=== PATIENT | female | born 1970 | race Caucasian/White ===

== ENCOUNTER 2016-09-09 00:54 | Inpatient (IN) | payer BC, OTHER ==
[2016-07-24 13:54] VITALS: BP 128/83
[2016-07-24 15:54] LABS: BASOPHIL % 0.2 % (0.0-0.2); EOSINOPHIL % 0.1 % (0.0-5.0); HEMATOCRIT 40.4 % (36.0-46.0); HEMOGLOBIN 13.2 g/dL (12.0-15.0); LYMPHOCYTES % 10.1 % (24.0-44.0); MEAN CELL HGB 29.3 pg (26-34); MEAN CELL HGB CONCENTRATION 32.7 g/dL (33-37); MEAN CORP VOLUME 89.6 fL (78-100); MEAN PLATELET VOLUME 10.4 fL (7.8-11.0); MONOCYTES # 0.2 10^3/uL (0.3-0.8); MONOCYTES % 1.9 % (5.0-12.0); NEUTROPHILS % 87.5 % (41.0-85.0); RED CELL DISTRIBUTION WIDTH 12.7 % (11.5-14.5); WHITE BLOOD CELL 10.3 10^3/uL (4.5-11.0)
[2016-07-24 16:13] LABS: ALANINE AMINOTRANSFERASE 17 U/L (12-78); ALKALINE PHOSPHATASE 102 U/L (50-136); ASPARTATE AMINO TRANSFERASE 23 U/L (0-35); CALCIUM 8.8 mg/dL (8.4-10.5); CARBON DIOXIDE 27.3 mmol/L (20.0-32); GLUCOSE 105 mg/dL (70-110)
[2016-09-08 10:04] LABS: BASOPHIL % 0.2 % (0.0-0.2); EOSINOPHIL # 0.2 10^3/uL (0.0-0.2); EOSINOPHIL % 1.8 % (0.0-5.0); HEMOGLOBIN 12.9 g/dL (12.0-15.0); LYMPHOCYTES # 2.8 10^3/uL (1.0-4.8); LYMPHOCYTES % 26.8 % (24.0-44.0); MEAN CELL HGB 29.9 pg (26-34); MEAN CELL HGB CONCENTRATION 33.1 g/dL (33-37); MEAN CORP VOLUME 90.5 fL (78-100); MEAN PLATELET VOLUME 9.6 fL (7.8-11.0); MONOCYTES # 0.9 10^3/uL (0.3-0.8); MONOCYTES % 8.7 % (5.0-12.0); NEUTROPHIL # 6.4 10^3/uL (1.8-7.7); NEUTROPHILS % 62.3 % (41.0-85.0); RED CELL DISTRIBUTION WIDTH 12.6 % (11.5-14.5); WHITE BLOOD CELL 10.3 10^3/uL (4.5-11.0)
[2016-09-08 10:54] LABS: CALCIUM 8.7 mg/dL (8.4-10.5); CARBON DIOXIDE 28.1 mmol/L (20.0-32)
[2016-09-09] VITALS (14 sets, daily range): BP systolic 106–143; BP diastolic 63–97
[~2016-09-09] VITALS: Ht 162.6 cm; Wt 75.3 kg
[~2016-09-09 00:54] MED LIST: BIOT25004 PO; BUTA1CAP61 PO; DICY10CA52 PO; FLUC150T PO; MOVIPREP POWDER PACKET PO STA; MULT-615 PO; PANT40GR PO; SIMV20TA3 PO; SIMV40TA3 PO
[2016-09-09] MEDS ORDERED: LACTATED RINGERS 1,000 ML ONE ×2 (04:53→11:52)
[2016-09-09] MEDS ORDERED: LOVENOX SQ ONE ×2 (04:53→06:00)
[2016-09-09] MEDS ORDERED: MEFOXIN ONE (04:54)
[2016-09-09] MEDS ORDERED: NS 100ML 100 ML IV ONE (04:54)
[2016-09-09] MEDS ORDERED: MEFOXIN IV ONE (06:00)
[2016-09-09] MEDS ORDERED: ZEMURON IV ONE (06:51)
[2016-09-09] MEDS ORDERED: VERSED ONE (06:52)
[2016-09-09] MEDS ORDERED: DIPRIVAN IV ONE (06:52)
[2016-09-09] MEDS ORDERED: ZOFRAN ONE (06:52)
[2016-09-09] MEDS ORDERED: SUBLIMAZE ONE (06:53)
[2016-09-09] MEDS ORDERED: TRANSDERM-SCOP TD ONE ×2 (07:25→07:26)
[2016-09-09] MEDS ORDERED: XYLOCAINE ONE (07:37)
[2016-09-09] MEDS: LACTATED RINGERS 1,000 ML IV SCH ×2 (07:44→12:21)
[2016-09-09] MEDS ORDERED: LIDOCAINE 2% VIAL ONE (07:52)
[2016-09-09] MEDS ORDERED: XYLOCAINE IH ONE (08:00)
[2016-09-09] MEDS ORDERED: LIDOCAINE HCL 4% IH ONE (08:00)
[2016-09-09] MEDS ORDERED: NS 1000ML 1,000 ML ONE (08:47)
[2016-09-09] MEDS ORDERED: SODIUM CHLORIDE IR ONE (08:47)
[2016-09-09] MEDS ORDERED: SENSORCAINE-MPF 0.5% VIAL ONE (08:48)
[2016-09-09] MEDS ORDERED: WATER ONE (09:06)
[2016-09-09] MEDS ORDERED: METHYLENE BLUE IJ ONE (10:15)
[2016-09-09] MEDS ORDERED: DILAUDID ONE ×2 (10:35→12:44)
[2016-09-09] MEDS ORDERED: SODIUM CHLORIDE IRR BAG 1,000 ML ONE (10:36)
[2016-09-09] MEDS ORDERED: TRIPLE ANTIBIOTIC OINTMENT TP ONE (11:28)
[2016-09-09] MEDS ORDERED: TYLENOL PO PRN ×2 (12:30→17:00)
[2016-09-09] MEDS ORDERED: ZOFRAN IV PRN (12:30)
[2016-09-09] MEDS: DILAUDID IV PRN ×2 (12:58→16:50)
[2016-09-09] MEDS ORDERED: DILAUDID IV PRN (13:00)
[2016-09-09] MEDS ORDERED: TRAM50TA PO (13:51)
[2016-09-09] MEDS ORDERED: PHENERGAN ONE (16:31)
[2016-09-09] MEDS ORDERED: TORADOL ONE (16:31)
[2016-09-09] MEDS: TORADOL IV PRN (16:50)
[2016-09-09] MEDS ORDERED: TYLENOL PO ONE (17:00)
[2016-09-09] MEDS ORDERED: PHENERGAN IV PRN (17:00)
--- NOTE | 2016-09-09 17:07 | OPH ---
DATE OF SURGERY: PREOPERATIVE DIAGNOSES: 1. History of abdominal pelvic pain. 2. Need for screening. 3. History of dyspepsia. POSTOPERATIVE DIAGNOSES: 1. Intra-abdominal adhesions. 2. Left pelvic cyst associated with the ovary. 3. Right ovarian cyst. 4. Extensive adhesions. 5. Gastritis. 6. Atypical mucosa at the ileocecal valve. SURGEON: Isaac Wright DO FINISHER PLATE: OR staff. ANESTHESIA: General by Rhett Corey CRNA plus local used on the field. PROCEDURES PERFORMED: 1. Diagnostic laparoscopy. 2. Laparoscopic lysis of adhesions. 3. Drainage of left ovarian pelvic cyst. 4. Drainage of right ovarian pelvic cyst. 5. Esophagogastroduodenoscopy with biopsy. 6. Long flexible colonoscopy to the cecum with cold forceps biopsy at the ileocecal valve. 7. Abdominoplasty. SPECIMENS: 1. Left pelvic cyst wall to path. 2. Right ovarian cyst wall to path. 3. Gastric mucosa to path. 4. Ileocecal valve, atypical mucosa to path. ESTIMATED BLOOD LOSS: For all procedures is 200 mL. DESCRIPTION OF PROCEDURE: The patient is a 46-year-old female known from previous evaluation and procedure. Prior to procedure, informed consent was obtained. At time of procedure, she was taken to the operative suite and placed in supine position. After timeout was completed, general anesthesia was obtained. Serrano catheter was inserted by the nursing service and her abdomen was prepped and draped in normal fashion. Local was used to anesthetize supraumbilical midline incision created. 5 mm trocar was introduced into the abdomen with Endo camera visualization. Once in the abdomen, pneumoperitoneum was induced to level of 14 mmHg. Next, with camera visualization, 5 mm trocar was placed laterally in the right upper quadrant, another one was placed laterally in the left upper quadrant. There was noted to be extensive adhesions of the omentum to the pelvis, initially to an ovarian structure that ultimately proves to be the left ovary. With further sharp dissection, blunt dissection and electrocautery dissection, there proves to be a large cystic structure associated with left ovary that was drained. Part of the wall was sent to pathology as specimen. Further adhesions were identified in the pelvis on the right side, which were taken down using blunt dissection and electrocautery and sharp dissection. The right ovary was identified as the cyst was drained and portion of the cyst wall was sent to pathology. Further adhesions were taken down of the pelvis to the limit of good visualization with concerns for injury to the bladder. The patient received IV methylene blue. The abdominal cavity was copiously irrigated. There were no signs of blue leakage in the abdomen. There was noted to be blue in the Serrano bag. A drain was passed down and Seprafilm was made into a slurry and placed in the abdominal cavity and subsequently closure was pursued. The remaining trocars were removed with camera visualization. There was noted to be no bleeding from trocar with a drain through it in the supraumbilical midline was secured with a nylon suture. The abdominal wall was previously prepped and draped and a lower abdominal wall incision was created. Electrocautery was used to completely dissect down to the level of fascia, which was taken superiorly and mobilized in the midline to the level of the umbilical stalk and on both sides as such. An inferior flap was created also. A portion of the skin was removed as well as the underlying adipose tissue. Further adipose was removed with electrocautery. After this was completed, the wound bed was irrigated. A drain was passed out through the subcutaneous incision on the right side and was placed deep in the defect and closure was pursued. Subcutaneous was closed with interrupted 2-0 Vicryl. Skin was closed stainless steel surgical clips. The drain was secured with a nylon suture. The remaining laparoscopic site was closed with stainless steel surgical clips. Dressings were applied. Drapes were removed. The patient remained anesthetized. Esophagogastroduodenoscope was advanced transorally with pneumoinsufflation distally into second portion of duodenum. Once the duodenum was adequately visualized, camera was slowly withdrawn to facilitate visualization of duodenal bulb and the pylorus. There was noted to be gastritis in the body of the stomach, which was biopsied. The retroflexed maneuver was performed. The cardia and fundus were within normal limits. Camera was reduced. Stomach was decompressed. Scope was slowly withdrawn. Distal, mid and proximal esophagus were within normal limits. Vocal cords were not visualized as an endotracheal tube is in place. The camera was removed. Procedure was discontinued. The patient remained in the OR table in supine position. She was frog legged and rectal exam was performed. There were no masses. Next, colonoscope was advanced transanally with pneumoinsufflation proximally to the level of cecum. The quality of prep was good. At the level of ileocecal valve, there was noted to be atypical mucosa. Biopsies were obtained. The camera was slowly withdrawn to facilitate visualization of the ascending colon, hepatic flexure, transverse colon, splenic flexure, descending colon, sigmoid and rectum. There were no further overt masses, polyps, or AVMs. Due to the narrow caliber of the rectum the retroflexed maneuver was not performed. The colon was decompressed. Colonoscope was removed. The patient tolerated these procedures well. There were no acute complications noted. Isaac Wright DO DR: BLESSING/kashif JOB# [id number] CC: Bismark Ronquillo MD MTDD
--- NOTE | 2016-09-09 18:40 | NUR ---
Received report from off going shift.
--- NOTE | 2016-09-09 19:45 | NUR ---
16Fr naqvi cath placed X1 attempt, using sterile technique, due to retention. Pt tolerated with little discomfort. Stat lock placed to Rt thigh. 400cc immediate return.
--- NOTE | 2016-09-09 21:16 | PRM.ACF1 ---
Date and Time Date and Time Date: Sep 09, 2016 Time: 00:28 Admission Criteria Forms ABDOMINAL PAIN Clinical Indications for Admission to Inpatient Care (Place 'X' for any and all applicable criteria): Admission is indicated for ANY ONE of the following(1)(2)(3)(4)(5): [X]I. Inpatient admission required rather than observation care (Also use Abdominal Pain: Observation Care, as appropriate) because of ANY ONE of the following: [X]a) Severe pain requiring acute inpatient management [ ]b) Identification of etiology/finding that requires inpatient care (eg, aortic dissection, free air) [ ]c) Absent bowel sounds with complete ileus(6) [ ]d) Suspected toxic megacolon [ ]e) Severe electrolyte abnormalities requiring inpatient care [ ]f) High fever or infection requiring inpatient admission as indicated by ANY ONE of following(7)(8): [ ] i) Appropriate outpatient or observational care antimicrobial treatment unavailable, not effective, or not feasible [ ] ii) Documented bacteremia [ ] iii) Temperature > 104.9 degrees F (oral) [ ] iv) T >103.1 F (oral) or < 96.8 F(rectal) that does not respond to all emergency treatment measures [ ]g) Signs of intestinal obstruction [B] [ ]h) Hemodynamic instability [ ]i) IV fluid to replace significant ongoing losses (greater than 3 L/m2 per day) (12)(13) [ ]j) Percutaneous or open drainage (eg, abscess, biliary tract ) procedures [ ]k) Parenteral nutrition regimen that must be implemented on inpatient basis [ ]l) Other condition,treatment or monitoring requiring inpatient admission. [ ]II. Peritoneal signs present [ ]III. Surgery needed that cannot be performed on an ambulatory basis. [ ]IV. Evaluation requires patient to not eat or drink for extended period ( eg, more than 24 hours). [ ]V. Contraindications and/or Inappropriate clinical situations for Observational Care in patients with abdominal pain, when ANY ONE of the following is required: [ ]a) Thorough evaluation is required to prevent catastrophic events due to delays in diagnosing (e.g.Mesenteric ischemia) 1,3 [ ]b) Patient with severe pathology or with chronic symptoms unlikely to improve in the ED stay (3) [ ]. General contraindications and/or Inappropriate clinical situations for Observational Care in patients with abdominal pain, when ANY ONE of the following is required: [ ]a) Prediction of prolongation of LOS based on ANY ONE of the following may be considered as a contraindication for observational care 2, 3, 4, 5, 6, 7, 8, 9, 10, 11 [ ]i) Age > 65 yrs. [ ]ii) Patient arriving by ambulance [ ]iii) Patient with high acuity [ ]iv) Patient requiring vital sign monitoring [ ]v) Patient on IV medication [ ]b) Systolic blood pressures 180mmHg 3,12 [ ]c) Patient with altered mental status including delirium and other alteration of consciousness, (3) [ ]d) Patient whose discharge disposition will be to a fpc home or rehabilitation home should not be managed in Emergency Department Observation Unit. CMS rule requires 3 days hospital stay before such placement.3,13 [ ]e) Patient with failure to thrive due to broad array of etiologies 3,16,17 [ ]f) Inability to ambulate 3,14 Extended stay beyond goal length of stay may be needed for(2)(3): [ ]a) Persistent abdominal pain with suspected intra-abdominal process [ ]b) Diagnosed condition requiring continued stay (e.g., pancreatitis, complicated diverticulitis) [ ]c) Surgery (e.g., colectomy) The original [employer] content created by [employer] has been revised. The portions of the content which have been revised are identified through the use of italic text or in bold, and [facility] [employer] has neither reviewed nor approved the modified material.All other unmodified content is copyright [facility]. Please see references footnoted in the original [facility] edition 2016 Physician order is complete/pr: Yes Is [facility] added/comple: YES JARROD SOLITARIO CDS Sep 09, 2016 21:16
--- NOTE | 2016-09-09 22:00 | NUR ---
Pt up ambulating in [place]. Pt states pain at a '2'. Denies any complaints at this time
[2016-09-09] MEDS ORDERED: LANOLIN HYDROUS TP ONE (23:04)
[2016-09-10 04:00] VITALS: BP 121/57
[2016-09-10 05:52] LABS: BASOPHIL % 0.1 % (0.0-0.2); EOSINOPHIL # 0.2 10^3/uL (0.0-0.2); EOSINOPHIL % 1.7 % (0.0-5.0); HEMATOCRIT 34.2 % (36.0-46.0); HEMOGLOBIN 10.7 g/dL (12.0-15.0); LYMPHOCYTES % 17.2 % (24.0-44.0); MEAN CELL HGB 29.2 pg (26-34); MEAN CELL HGB CONCENTRATION 31.3 g/dL (33-37); MEAN CORP VOLUME 93.4 fL (78-100); MONOCYTES # 0.9 10^3/uL (0.3-0.8); MONOCYTES % 8.1 % (5.0-12.0); NEUTROPHIL # 8.5 10^3/uL (1.8-7.7); NEUTROPHILS % 72.8 % (41.0-85.0); WHITE BLOOD CELL 11.6 10^3/uL (4.5-11.0)
[2016-09-10 06:05] LABS: CALCIUM 8.1 mg/dL (8.4-10.5); CARBON DIOXIDE 27.3 mmol/L (20.0-32)
[2016-09-10 07:53] VITALS: BP 123/70
--- NOTE | 2016-09-10 09:49 | NUR ---
DISCHARGE PLANNING: SS VISITED WITH PT CONCERNING DISCHARGE PLANNING NEED. PT IS INDEPENDENT AND LIVES AT HOME WITH HER SPOUSE. 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 PT DENIES NEEDING ADDITIONAL RESOURCES AT THIS TIME. PT SAFETY HANDOUT ADDRESSED, NO QUESTIONS ASKED, UNDERSTANDING VERBALIZED. SS TO CONTINUE TO MONITOR AND ASSIST WITH DISCHARGE PLANNING.
[2016-09-10 11:38] VITALS: BP 122/74
[2016-09-10] MEDS ORDERED: ULTRAM ONE (11:39)
--- NOTE | 2016-09-10 11:40 | NUR ---
Ambulation Patient ambulating hallway. Educated patient on the importance of ambulation to prevent blood clots, patient verbalized understanding.
[2016-09-10] MEDS: ULTRAM PO PRN ×4 (11:42→19:55)
[2016-09-10] MEDS: KEFLEX PO SCH ×3 (12:46→21:45)
--- NOTE | 2016-09-10 15:07 | NUR ---
Ambulation Patient ambulating hallway
[2016-09-10 16:00] VITALS: BP 130/70
[2016-09-10] MEDS: TORADOL IV PRN (19:08)
[2016-09-10 19:21] VITALS: BP 110/63
[2016-09-10 23:49] VITALS: BP 116/74
[2016-09-11 04:17] VITALS: BP 120/65
[2016-09-11] MEDS: ULTRAM PO PRN (05:51)
[2016-09-11] MEDS: LACTATED RINGERS 1,000 ML IV SCH (06:00)
--- NOTE | 2016-09-11 07:24 | NUR ---
Ambulation Patient ambulating hallway
[2016-09-11 08:12] VITALS: BP 107/57
[2016-09-11] MEDS: DILAUDID IV PRN (08:35)
[2016-09-11] MEDS ORDERED: DIFLUCAN PO SCH (09:00)
--- NOTE | 2016-09-11 10:17 | PRM.DC ---
Discharge Summary Date of Arrival on Unit: Jul 24, 2016 Reason for Visit: Abdominal pain Patient History: Diabetes mellitus 33 FATHER Hypertension 33 FATHER No known health problems 32 MOTHER G8 BROTHER G8 SISTER G8 SISTER 19 CHILD 19 CHILD History Present Illness: (1) Hyperlipidemia SEVERITY: MODERATE PERSISTENT Status: Chronic ICD Code: E78.5 SNOMED: 42745225 Assessment & Plan: Continue statin therapy (2) Canalicular eyelid laceration SEVERITY: MILD PERSISTENT Status: Chronic ICD Code: S01.119A SNOMED: 687065408 Assessment & Plan: History of chronic yeast infections due to previous chemotherapy - continue diflucan as prescribed (3) Abdominal pain SEVERITY: MODERATE PERSISTENT Status: Chronic ICD Code: R10.9 SNOMED: 75376748 Assessment & Plan: General surgery consulted - she is s/p ex-lap with lysis of adhesions - PRN pain medications General: Alert, Oriented X3, Cooperative, No acute distress HEENT: PERRLA, EOMI Neck: Supple, No JVD Lungs: Clear to auscultation, Normal air movement Heart: Regular rate, Normal S1, Normal S2, No murmurs Abdomen: Normal bowel sounds, Soft Extremities: No clubbing, No cyanosis, No edema Skin: No rashes, No breakdown Neuro: Normal gait, Normal speech Psych/Mental Status: Mental status NL, Mood NL Results(Labs/Rad) Laboratory Tests Test 09/10/16 05:08 White Blood Count 11.610^3/uL Red Blood Count 3.6610^6/uL Hemoglobin 10.7g/dL Hematocrit 34.2% Mean Corpuscular Volume 93.4fL Mean Corpuscular Hemoglobin 29.2pg Mean Corpuscular Hemoglobin Concent 31.3g/dL Red Cell Distribution Width 13.0% Platelet Count 59622^3/uL Mean Platelet Volume 10.0fL Neutrophils (%) (Auto) 72.8% Lymphocytes (%) (Auto) 17.2% Monocytes (%) (Auto) 8.1% Neutrophils # (Auto) 8.510^3/uL Lymphocytes # (Auto) 2.010^3/uL Monocytes # (Auto) 0.910^3/uL Absolute Immature Granulocyte (auto 0.0110^3 u/L Eosinophils % 1.7% Basophils % 0.1% Basophils # 0.010^3/uL Eosinophil Count 0.210^3/uL Sodium Level 140mmol/L Potassium Level 4.3mmol/L Chloride Level 105.0mmol/L Carbon Dioxide Level 27.3mmol/L Glucose Level 90mg/dL Blood Urea Nitrogen 6mg/dL Creatinine 0.67mg/dL Estimat Glomerular Filtration Rate 0 Calcium Level 8.1mg/dL Anion Gap 12.0 BUN/Creatinine Ratio 8.0 Calculated Osmolality 287.1 Percent Immature Gran (Cell Imm) 0.10% Scheduled Biotin (Biotin) 2,500 MCG PO DAILY (Reported) Dicyclomine Hcl (Bentyl) 1 CAP PO DAILY (Reported) Fluconazole (Diflucan) 150 MG PO BID (Reported) Multivitamin With Minerals (Hair, Skin & Nails) 2 EACH PO DAILY (Reported) Pantoprazole Sodium (Protonix) 40 MG PO DAILY (Reported) Simvastatin (Simvastatin) 1 TAB PO HS (Reported) Tramadol Hcl (Tramadol Hcl) 1 TAB PO Q6 (Reported) Scheduled PRN Butalbit/Acetamin/Caff/Codeine (Fioricet-Cod 21-321-90-30 Cap) 1 EACH PO TID PRN PRN MIGRAINES (Reported) Course Blood Pressure Systolic: 107 Blood Pressure Diastolic: 57 Blood Pressure Mean: 74 Notes Ms Nunn presented with chronic, sometimes debilitating pain particularly in bilateral lower quadrants. She has a prior history of metastatic breast cancer and has had multiple abdominal surgeries. She had exploratory laparotomy with lysis of adhesions. Her pain control has improved and she is ambulating now. She is tolerating diet well. Plan Discharge Date: Sep 11, 2016 Discharge Disposition: Stable Plan Resume home medications Follow up with Surgery as scheduled Diet as tolerated Wound care per Surgery Time spent 25 minutes Problem Qualifiers (1) Hyperlipidemia: Hyperlipidemia type: pure hypercholesterolemia Qualified Code: E78.00 - Pure hypercholesterolemia, unspecified (2) Canalicular eyelid laceration: Encounter type: initial encounter (3) Abdominal pain: Abdominal location: generalized Qualified Code: R10.84 - Generalized abdominal pain OMID VEGA MD Sep 11, 2016 10:17
--- NOTE | 2016-09-11 10:35 | NUR ---
RAISSA Drain removed RAISSA #1 to left abdomen removed by Dr. Wright. Site covered with 4x4 and medipore tape. Will continue to monitor.
[2016-09-11 11:00] VITALS: BP 107/57
--- NOTE | 2016-09-11 11:16 | NUR ---
Discharge Discharge instructions given to patient. Educated patient on importance of follow up appointment, patient verbalized understanding. Educated patient on s/s of infection, patient verbalized understanding. Instructed patient on incision care, patient verbalized understanding. Educated patient on RAISSA drain, patient returned demonstration. Discharge pictures taken and placed in chart. Dressed incision site with neosporin, adaptic, 4x4 and medipore tape per Dr. Wright orders using aseptic technique. Discontinued IV, catheter tip intact. No bleeding, swelling, redness or pain noted. Covered with cotton ball and bandaid. Patient ambulated off unit with staff to private vehicle. No s/s of distress noted.
--- NOTE | 2016-09-11 11:20 | HPH ---
ADMIT DATE: 09/09/2016 CHIEF COMPLAINT: Abdominal pain. HISTORY OF PRESENT ILLNESS: The patient is a 46-year-old woman with a past medical history significant for hyperlipidemia, prior history of breast cancer with chemo and radiation therapy in the past, chronic constipation, history of GERD and gastritis who is status post exploratory laparotomy with significant lysis of adhesions. She has had a chronic history of abdominal pain virtually every day. She also has a history of chronic constipation, which was not the etiology of the pain. The pain was primarily in the bilateral lower quadrant, right greater than left. It was not associated with activity. She has no history of fever or recent infection. She does have a history of chronic yeast infections due to previous chemotherapy and her immune system does require that she is on Diflucan virtually every day. She had a workup and it was consistent with some adhesions. She has had numerous abdominal surgeries including hysterectomy due to prior history of cancer. She has a good functional status. 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 PAST SURGICAL HISTORY: She has had bilateral breast implant. She has had a hysterectomy. She has had mandibular surgery due to metastatic breast cancer. ALLERGIES: NO KNOWN DRUG ALLERGIES. HOME MEDICATIONS: List includes Diflucan 150 mg most days, simvastatin 40 mg daily, tramadol p.r.n. for pain, Protonix 40 mg daily, multivitamin daily, dicyclomine 10 mg as needed for abdominal cramps, Fioricet p.r.n. for migraine headaches. SOCIAL HISTORY: No alcohol, tobacco or illicit drug use history. FAMILY HISTORY: Negative for early coronary artery disease or diabetes. REVIEW OF SYSTEMS: CARDIAC: Denies chest pain, shortness of breath or dyspnea on exertion. PULMONARY: No cough, sputum production, pleuritic chest pain. GASTROINTESTINAL: No nausea, vomiting, diarrhea. She does have a history of chronic constipation. All else negative in 10 point review of system except as in HPI. PHYSICAL EXAMINATION: VITAL SIGNS: Initial vital signs upon arrival, height 64 inches, weight 166 pounds, temperature 97.5, pulse of 73, respiratory rate is 18, blood pressure 125/64, O2 saturations after surgery 99% on 2 liters nasal cannula. GENERAL: She is alert, but somewhat groggy from anesthesia, in no acute distress. HEENT: Pupils equal, round, reactive to light. Sclerae is anicteric. Oropharynx is clear. Mucous membranes are moist. NECK: Supple, no lymphadenopathy. CARDIOVASCULAR: At time of exam is regular rate and rhythm. No murmurs. LUNGS: Clear to auscultation bilaterally. No wheezing. ABDOMEN: Soft. Bowel sounds are hypoactive, but present, tender to palpation, but she just had recent surgery. EXTREMITIES: No cyanosis, clubbing or edema. NEUROLOGIC: Grossly nonfocal. INITIAL LABORATORY DATA: From day prior to surgery, CBC: White count 10.3, hemoglobin 12.9 and platelets 287. Differential: 62% neutrophils, 27% lymphocytes and 9% monocytes. Sodium 137, potassium 3.6, chloride 102, CO2 is 28, BUN 10, creatinine 0.7, glucose is 85, calcium is 8.7, total bilirubin 0.2, AST 11, ALT 21, alkaline phosphatase 82, total protein is 6.9, albumin 3.8. ASSESSMENT AND PLAN: The patient is a 46-year-old woman status post exploratory laparotomy with lysis of adhesions with bilateral ovarian cysts, gastritis with a history of hyperlipidemia, chronic constipation, history of breast cancer status post chemotherapy and radiation therapy with chronic yeast infections. 1. General Surgery is consulted for management of abdominal pathology. 2. Appropriate p.r.n. pain and nausea medication. 3. Continue her statin at current dose. She has a significant history of hyperlipidemia. 4. DVT prophylaxis with SCDs. 5. GI prophylaxis with PPI. She does have gastritis. Time spent with the patient is 45 minutes on 09/09/2016. Bismark Ronquillo MD DR: MACKENZIE/kashif JOB# [id number]
--- NOTE | 2016-09-11 12:11 | PNH ---
DATE: SUBJECTIVE: A 46-year-old female in no acute distress. She was seen on multiple occasions today with the nursing service. OBJECTIVE: VITAL SIGNS: Last temperature is 98.1, pulse 71, respiratory rate is 17, blood pressure 130/70 and O2 sat 93%. Her drain output is listed in total as 70 mL from both drains collectively. ABDOMEN: The bowel sounds are positive, soft. She has dressings intact, which we will not remove today. LABORATORY DATA: Today show WBC 11.6, hemoglobin 10.7 and platelet count 244. Chemistry shows BUN is 6, creatinine 0.67. Last labs show PT of 9.9, PTT of 24.8. ASSESSMENT: Postop day #1, laparoscopy, etc. PLAN: 1. The patient is seen and examined. Chart is reviewed. Advance diet as tolerated. Because of slight increase in white count, we will start her on empiric p.o. antibiotics. 2. Increase activity as tolerated. Isaac Wright DO DR: BLESSING/kashif JOB# [id number] CC: Bismark Ronquillo MD
--- NOTE | 2016-09-11 19:32 | PNH ---
DATE: 09/10/2016 SUBJECTIVE: Pain is well controlled. She does have significant right lower quadrant pain, but is controlled with IV and p.o. medications She does have some nausea, but no vomiting. She has started to ambulate some today. No other acute events overnight. OBJECTIVE: VITAL SIGNS: T-max last 24 hours 98.4, pulse of 80, respiratory rate is 20, blood pressure 110/63 and O2 saturation 92% on room air. GENERAL: She is alert, in no acute distress at time of exam. HEENT: Pupils equal, round, reactive to light. Sclerae is anicteric. Oropharynx is clear. Mucous membranes are moist. NECK: Supple, no lymphadenopathy. CARDIOVASCULAR: At time of exam is regular rate and rhythm. No murmurs. LUNGS: Clear to auscultation bilaterally. No wheezing. ABDOMEN: Soft. Bowel sounds are hypoactive, tender to palpation. RAISSA drain bilaterally did show significant serosanguineous fluid. EXTREMITIES: No cyanosis, clubbing or edema. NEUROLOGIC: Grossly nonfocal. LABORATORY DATA: Sodium 140, potassium 4.3, chloride 105, CO2 is 27, BUN 6, creatinine 0.67, glucose is 90, calcium is 8.1. CBC: White count 11.6, hemoglobin 10.7, platelets 244. Differential: 73% neutrophils, 17% lymphocytes, 8% monocytes. ASSESSMENT AND PLAN: The patient is a 46-year-old woman here with significant abdominal pain after lysis of adhesions with history of hyperlipidemia, chronic yeast infections due to prior history of chemotherapy after breast cancer with incomplete return of bowel function at this point. 1. Continue current p.r.n. pain and nausea medications. General Surgery is consulted and following. 2. Encourage frequent ambulation. 3. We will continue clear liquid diet for now. We will advance when she has complete return of bowel function. Time spent with the patient is 25 minutes on 09/10/2016. Bismark Ronquillo MD DR: MACKENZIE/kashif JOB# [id number]
== END 2016-09-11 11:56 | disposition home or self-care (01) | DRG 983 ==
LOC: SDC 00:54 → MS 07:54
PROVIDERS: ADMIT Internal Medicine; ATTEND Surgery
PROC: 0DB68ZX Excision of Stomach, Via Natural or Artificial Opening Endoscopic, Diagnostic (ICD-10-PCS; 2016-09-09)
PROC: 0DBH8ZX Excision of Cecum, Via Natural or Artificial Opening Endoscopic, Diagnostic (ICD-10-PCS; 2016-09-09)
PROC: 0UN24ZZ Release Bilateral Ovaries, Percutaneous Endoscopic Approach (ICD-10-PCS; principal; 2016-09-09 09:20)
PROC: 0U904ZZ Drainage of Right Ovary, Percutaneous Endoscopic Approach (ICD-10-PCS; 2016-09-09 09:20)
PROC: 0U914ZZ Drainage of Left Ovary, Percutaneous Endoscopic Approach (ICD-10-PCS; 2016-09-09 09:20)
DX: K66.0 Peritoneal adhesions (postprocedural) (postinfection) (principal); N83.201 Unspecified ovarian cyst, right side; N83.202 Unspecified ovarian cyst, left side; K29.70 Gastritis, unspecified, without bleeding; K21.9 Gastro-esophageal reflux disease without esophagitis; E78.5 Hyperlipidemia, unspecified; K59.09 Other constipation; N94.89 Other specified conditions associated with female genital organs and menstrual cycle; Z90.710 Acquired absence of both cervix and uterus; Z85.3 Personal history of malignant neoplasm of breast; Z92.21 Personal history of antineoplastic chemotherapy; Z92.3 Personal history of irradiation; Z98.82 Breast implant status; Z83.3 Family history of diabetes mellitus; Z82.49 Family history of ischemic heart disease and other diseases of the circulatory system
CPT/HCPCS: 36415; 43239; 45380; 49320; 80048; 80053; 85025; 85610; 85730; 94640; A4338; J1170; J1650; J1885; J2001; J2250; J2405; J2550; J3010; J3490; J7030; J7120; G0121; J0694

== ENCOUNTER → 2017-01-27 | Outpatient (CLI) | payer BC, OTHER ==
[~2017-01-27] MED LIST changes: -MOVIPREP POWDER PACKET PO STA; +TRAM50TA PO
[2017-01-28 05:16] LABS: TESTOSTERONE, TOTAL <3 ng/dL (8-48)
== END | disposition home or self-care (01) ==
LOC: LAB 12:05
PROVIDERS: ATTEND Internal Medicine
DX: R53.1 Weakness (principal)
CPT/HCPCS: 36415; 82306; 82607; 84403

== ENCOUNTER → 2017-05-10 | Outpatient (CLI) | payer OTHER ==
[~2017-05-10] MED LIST changes: -BIOT25004 PO; +BIOT25005 PO
[2017-05-11 05:16] LABS: FOLLICLE STIMULATING HORMONE 7.7 mIU/mL (.)
== END | disposition home or self-care (01) ==
LOC: LAB 09:24
PROVIDERS: ATTEND Internal Medicine
DX: E78.5 Hyperlipidemia, unspecified (principal); L40.52 Psoriatic arthritis mutilans; R53.1 Weakness
CPT/HCPCS: 36415; 80061; 82306; 82607; 83001; 84403; 85651; 86038; 86160

== ENCOUNTER 2017-07-28 23:06 | Inpatient (IN) | payer OTHER ==
[~2017-07-28] VITALS: Ht 162.6 cm; Wt 68.9 kg
[2017-07-28] MEDS: NS 1000ML 1,000 ML IV SCH (00:30)
[2017-07-28 23:24] VITALS: BP 136/80
[2017-07-28] MEDS ORDERED: ULTRAM PO PRN (23:30)
[2017-07-28] MEDS ORDERED: TYLENOL PO PRN (23:30)
[2017-07-28 23:47] LABS: BASOPHIL % 0.3 % (0.0-0.2); EOSINOPHIL # 0.2 10^3/uL (0.0-0.2); EOSINOPHIL % 2.1 % (0.0-5.0); LYMPHOCYTES # 3.3 10^3/uL (1.0-4.8); LYMPHOCYTES % 35.9 % (24.0-44.0); MEAN CELL HGB 28.8 pg (26-34); MEAN CELL HGB CONCENTRATION 32.3 g/dL (33-37); MEAN CORP VOLUME 89.2 fL (78-100); MEAN PLATELET VOLUME 10.1 fL (7.8-11.0); MONOCYTES # 0.7 10^3/uL (0.3-0.8); NEUTROPHIL # 4.9 10^3/uL (1.8-7.7); NEUTROPHILS % 53.5 % (41.0-85.0); RED CELL DISTRIBUTION WIDTH 12.5 % (11.5-14.5); WHITE BLOOD CELL 9.1 10^3/uL (4.5-11.0)
[2017-07-29 00:03] LABS: CALCIUM 8.5 mg/dL (8.4-10.5); CARBON DIOXIDE 26.7 mmol/L (20.0-32)
[2017-07-29] MEDS: PROTONIX IV IV SCH ×3 (00:30→21:49)
--- NOTE | 2017-07-29 00:32 | PCM.EKG ---
[facility] Test Date: 2017-07-28 Test Time: 23:38:13 Pat Name: MANNY GIVENS Department: Room: 307 A Gender: F Quality Lead: PB : 1970 Requested By: OMID VEGA Order Number: [id number] Reading MD: Toño Villafana Measurements Intervals [place] Rate: 84 P: 50 DE: 156 QRS: -9 QRSD: 96 T: 30 QT: 392 QTc: 463 Interpretive Statements Normal sinus rhythm Poor progression of R waves. Left axis deviation No previous ECG available for comparison Electronically Signed On 07-29-2017 9:02:09 [employer]ICAL [employer]ILLING [employer] by Toño Villafana Please click the below link to view image of tracing.
[2017-07-29] MEDS ORDERED: DIFLUCAN IV SCH (01:00)
--- NOTE | 2017-07-29 01:06 | NUR ---
Diflucan 200mg hung and infusing per orders. Medication is not showing up on [facility] but can be found in the EMR orders area.
--- NOTE | 2017-07-29 04:21 | HPH ---
ADMIT DATE: 07/28/2017 The patient is seen just before midnight. CHIEF COMPLAINT: Multiple complaints including severe epigastric pain, inability to tolerate oral intake well, persistent yeast infections on abdomen and chest. HISTORY OF PRESENT ILLNESS: This patient is a 47-year-old woman with past medical history significant for hyperlipidemia, history of breast cancer, GERD, immune deficiency, resulting in persistent yeast infections, dyslipidemia. She is on a proton pump inhibitor taking it twice a day lately, but has persistent severe epigastric pain with minimal oral intake. She has had a prior cholecystectomy. She also complains of some burning sensation in the retrosternal area. There has been no emesis or hemoptysis or hematemesis. She has a long history of immune deficiency causing persistent yeast infections for which she takes Diflucan daily. Despite this, she has had worsening topical yeast infections including upper chest region and lower abdominal region below couple of post-surgical sites on bilateral lower quadrants. These infections have been difficult to control despite taking oral Diflucan and topical skin care. They have resulted in some burning and pain sensation also. There have been no recent medication changes. No fever or chills. PAST MEDICAL HISTORY: Includes hyperlipidemia, chronic yeast infections, history of breast cancer and GERD, chronic yeast infections due to immune deficiency. PAST SURGICAL HISTORY: She has had bilateral breast implants, hysterectomy, cholecystectomy, mandible surgery due to metastatic breast cancer, lysis of adhesions and partial oophorectomy. ALLERGIES: NO KNOWN DRUG ALLERGIES. HOME MEDICATIONS: List includes Diflucan 150 mg daily, simvastatin 40 mg daily, tramadol as needed for pain, Protonix 40 mg taking it twice daily, multivitamin daily, dicyclomine 10 mg as needed for abdominal cramps and Fioricet p.r.n. for migraines. SOCIAL HISTORY: Lives at home. No alcohol, tobacco or illicit drug use history. FAMILY HISTORY: Negative for early coronary artery disease or diabetes. REVIEW OF SYSTEMS: CARDIAC: Denies chest pain, shortness of breath or dyspnea on exertion. PULMONARY: No cough, sputum production or pleuritic chest pain. GASTROINTESTINAL: Positive for nausea, no vomiting, diarrhea or constipation. All else negative in 10 point review of system except as in HPI. PHYSICAL EXAMINATION: VITAL SIGNS: Upon arrival, height 162.5 cm, weight 68.9 kilograms, temperature 97.6, pulse of 90, respiratory rate is 18, blood pressure 136/80 and O2 saturation 96% on room air. GENERAL: She is alert, in no acute distress at time of exam. HEENT: Pupils equal, round, reactive to light. Sclerae are anicteric. Oropharynx is clear. Mucous membranes are moist. NECK: Supple, no lymphadenopathy. CARDIOVASCULAR: At time of exam was regular rate and rhythm. LUNGS: Clear bilaterally. No wheezing. ABDOMEN: Soft. Bowel sounds are present, nontender to palpation. EXTREMITIES: No cyanosis, clubbing or significant edema. NEUROLOGIC: Grossly nonfocal. SKIN: Questionable skin exam. She has some topical candidal infections in the upper chest region. She also has some areas of Kristin infection in bilateral lower quadrants beneath some postsurgical sites. INITIAL LABORATORY DATA: Sodium 138, potassium 3.5, chloride 102, CO2 is 27, BUN 10, creatinine 0.8, glucose 95, calcium is 8.5, total bilirubin 0.2, AST 16, ALT 24, alkaline phosphatase 96, total protein 7.1, albumin 3.8, magnesium 1.8, PT of 9.8, PTT 25.0. CBC: White count 9.1, hemoglobin 12.0 and platelets 318. Differential: 53% neutrophils, 36% lymphocytes, 8% monocytes. IMAGING STUDIES: EKG is normal sinus rhythm. ASSESSMENT AND PLAN: The patient is a 47-year-old woman here with epigastric pain with some mild dysphagia due to pain and burning with eating, severe abdominal cramping with oral intake despite twice a day proton pump inhibitor therapy, also with topical yeast infections despite Diflucan suppression therapy. 1. From GI standpoint, we will start IV Protonix q.12h. We will get General Surgery consult. She has had gastritis diagnosed by EGD in the past and had symptoms of progressive worsening over the last few weeks. We will check an H. pylori. 2. Continue her statin at current dose. 3. From infectious disease standpoint, she has impaired immune function, resulting in persistent yeast infections with immunosuppression therapy with Diflucan daily, which has failed outpatient therapy with worsening yeast infections in chest and underneath some skin folds of the bilateral lower quadrants. We will order IV Diflucan, General Surgery assessment for persistent yeast infections. 4. Appropriate p.r.n. pain and nausea medication. 5. DVT prophylaxis with SCDs. 6. Full code. Time spent on 07/28/2017 is 45 minutes. This plan was discussed with the patient. She is her own decision maker. She does understand and concur with plans. Bismark Ronquillo MD DR: MACKENZIE/kashif JOB# [id number] GRACE
[2017-07-29 05:42] VITALS: BP 136/94
[2017-07-29] MEDS ORDERED: VERSED ONE (06:42)
[2017-07-29] MEDS ORDERED: SUBLIMAZE ONE (06:43)
[2017-07-29] MEDS ORDERED: DIPRIVAN IV ONE ×2 (06:43→10:09)
--- NOTE | 2017-07-29 06:45 | NUR ---
REPORT REPORT RECEIVED FROM PREVIOUS SHIFT AND ASSUMED CARE OF PT
[2017-07-29] MEDS ORDERED: WATER ONE (06:59)
[2017-07-29] MEDS ORDERED: LACTATED RINGERS 1,000 ML ONE ×2 (07:21→10:09)
[2017-07-29 08:19] VITALS: BP 133/73
[2017-07-29] MEDS: BENTYL PO SCH (08:20)
[2017-07-29] MEDS ORDERED: LOVENOX SQ STA (08:23)
[2017-07-29] MEDS ORDERED: ANCEF 1 GM in NS 100ML 100 ML IV ONE (08:30)
[2017-07-29] MEDS ORDERED: LOVENOX SQ SCH (08:30)
--- NOTE | 2017-07-29 08:39 | NUR ---
OFF UNIT PT OFFU NIT VIA BED TO OR AT THIS TIME
[2017-07-29] MEDS ORDERED: SODIUM CHLORIDE IR ONE (08:54)
[2017-07-29] MEDS ORDERED: SENSORCAINE-MPF 0.5% VIAL ONE (08:55)
[2017-07-29] MEDS ORDERED: XYLOCAINE 2%-EPI 1:100,000 ONE (08:55)
[2017-07-29] MEDS ORDERED: PROTONIX IV IV SCH (09:00)
[2017-07-29] MEDS: DIFLUCAN 100 ML IV SCH (09:01)
[2017-07-29] MEDS ORDERED: TRIPLE ANTIBIOTIC OINTMENT TP ONE (09:26)
[2017-07-29] MEDS: NS 1000ML 1,000 ML IV SCH ×2 (09:30→15:41)
[2017-07-29 09:56] VITALS: BP 108/57
[2017-07-29 10:11] VITALS: BP 117/74
[2017-07-29] MEDS ORDERED: ZOFRAN IV PRN (10:30)
[2017-07-29] MEDS ORDERED: PHENERGAN IV PRN (10:30)
[2017-07-29] MEDS ORDERED: DILAUDID IV PRN (10:30)
[2017-07-29] MEDS ORDERED: BENADRYL IV PRN (10:30)
--- NOTE | 2017-07-29 10:30 | NUR ---
BACK TO UNIT PT BACK FROM OR AT THIS TIME. REPORT RECEIVED FROM Albin DE JESUS RN AND ASSUMED CARE OF. PT. DENIES ANY NEEDS OR PAIN AT THIS TIME. PT SITTING UP IN BED AWAKE. EQUAL CHEST RISE AND FALL. DR. VEGA IN ROOM AT BEDSIDE. CALL LIGHT WITHIN REACH.
--- NOTE | 2017-07-29 10:39 | OPH ---
DATE OF SURGERY: PREOPERATIVE DIAGNOSES: 1. History of significant dyspepsia and upper abd pain. 2. Recurrent candidal skin infection of the abdominal wall. SURGEON: Isaac Wright DO [employer] WORK[employer]: OR staff. ANESTHESIA: Total intravenous anesthesia by Dale Bright CRNA plus local used on the field. PROCEDURES PERFORMED: 1. Esophagogastroduodenoscopy with biopsy. 2. Bilateral excision of redundant skin and subcutaneous tissue with Intermediate level layered closure x 5 cm total. SPECIMENS: Gastric mucosa to path. ESTIMATED BLOOD LOSS: 7 mL. POSTPROCEDURE DIAGNOSES: Includes gastritis and chronic inflammation of the skin of the abdominal wall. DESCRIPTION OF PROCEDURE: The patient is a 47-year-old female known from previous evaluation. Prior to procedure, informed consent was obtained. At time of procedure, she was taken to the operative suite and placed in supine position. After timeout was completed with adequate sedation, she was placed in left lateral recumbent position. After adequate sedation was confirmed, esophagogastroduodenoscope was advanced transorally with pneumoinsufflation distally in second portion of duodenum. Once the duodenum was adequately visualized, camera was slowly withdrawn to facilitate visualization of the duodenal bulb and the pylorus. The pylorus and distal stomach as well as the body showed significant gastritis and biopsies were obtained. The retroflexed maneuver was performed. The cardia and fundus were grossly normal. Camera was reduced. Hemostasis noted to be good. Stomach was decompressed. Scope was slowly withdrawn. Distal, mid and proximal esophagus were grossly normal. The vocal cords were not visualized. Camera was removed. Procedure was discontinued. The patient was repositioned in the supine position in the OR. Timeout was previously completed. She was noted to have adequate sedation. After abdominal wall was prepped and draped, in left lower quadrant, redundant skin was identified. The area was localized. Skin was incised sharply and the excess skin and adipose tissue were removed using electrocautery. The wound bed was irrigated and closed in layers using 2-0 Monocryl in the deep tissue, 3-0 Vicryl in subcutaneous and skin was closed with 4-0 Monocryl in running subcuticular fashion. Attention was directed towards the right side abdominal wall. The chronic inflammation was again identified. The skin was elliptically incised. The subcutaneous tissue and adipose was removed using electrocautery. The wound bed was irrigated. Deep tissue was closed with interrupted 2-0 Monocryl deep, subcutaneous was closed with interrupted 3-0 Vicryl and skin was closed with 4-0 Monocryl in running subcuticular fashion. Minimal bleeding on the right side. Direct pressure applied for 3 minutes. Good hemostasis noted. Both sides were dressed with Steri-Strips, triple antibiotic Adaptic and gauze. The drapes removed. The patient tolerated these procedures well and there were no acute complications noted. Isaac Wright DO DR: BLESSING/kashif JOB# [id number] CC: Bismark Ronquillo MD MTDD
--- NOTE | 2017-07-29 14:00 | NUR ---
DISCHARGE PLAN CM/SS VISITED WITH PT CONCERNING HER DISCHARGE PLAN AND NEED. PT LIVES @ HOME WITH HER SPOUSE AND IS INDEPENDENT ON ADLS. PT ALSO STATED SHE HAS A GREAT FAMILY SUPPORT SYSTEM TO ASSISTS HER NEEDED. SHE DENIES NEEDING ANY FURTHER ADDITIONAL RESOURCES AT THIS TIME. PT SAFETY HANDOUT ADDRESSED, NO QUESTIONS ASKED AND VOICED UNDERSTANDING. CM/SS TO CONTINUE TO FOLLOW PTS PLAN OF CARE AND FOR FURTHER DISCHARGE NEEDS.
[2017-07-29 15:29] VITALS: BP 135/82
--- NOTE | 2017-07-29 16:32 | NUR ---
HEMATOMA HEMATOMA NOTED TO RIGHT LOWER INCISION. NO BLEEDING PRESENT. HARD TO TOUCH. DR. CLARKE NOTIFIED. ORDERS RECEIVED FOR PRESSURE DRESSING AND HE WILL COME LOOK AT IT. PRESSURE DRESSING APPLIED. PT TOLERATED WELL. REFUSES PAIN MEDICATION AT THIS TIME. ALL NEEDS MET. CALL LIGHT WITHIN REACH.
--- NOTE | 2017-07-29 18:34 | NUR ---
REPORT REPORT GIVEN TO ONCOMING SHIFT AND CARE RELINQUISHED
--- NOTE | 2017-07-29 18:34 | NUR ---
REPORT REPORT RECEIVED FROM ARCHIE LE ASSUMED CARE OF PT
[2017-07-29 20:44] VITALS: BP 132/90
[2017-07-29] MEDS ORDERED: ZOCOR PO SCH (21:00)
[2017-07-30] MEDS: DIFLUCAN 100 ML IV SCH (00:18)
[2017-07-30] MEDS ORDERED: DILAUDID IV PRN (00:30)
[2017-07-30 01:10] VITALS: BP 134/78
[2017-07-30 04:55] VITALS: BP 125/86
[2017-07-30] MEDS: NS 1000ML 1,000 ML IV SCH (05:30)
[2017-07-30] MEDS: ZOFRAN IV PRN ×2 (05:33→09:07)
--- NOTE | 2017-07-30 06:30 | NUR ---
REPORT RECEIVED FROM MIMI CYR.
--- NOTE | 2017-07-30 06:45 | NUR ---
ASSESSMENT COMPLETED. PATIENT AWAKE AND ALERT SITTING UP IN CHAIR. REPORTS PAIN 3. SKIN WARM AND DRY. RESPIRATIONS UNLABORED. HEART RATE REGULAR. ABDOMEN SOFT WITH HYPOACTIVE BOWEL SOUNDS. PRESSURE DRESSING PRESENT TO RIGHT LOWER SIDE OF ABDOMEN AND DRESSING PRESENT TO LEFT LOWER SIDE OF ABDOMEN. CLEAN AND DRY. PATIENT INDEPENDENT IN ROOM. SALINE LOCK PRESENT IN LEFT FOREARM. NO DISTRESS NOTED. PATIENT DENIES UNMET NEEDS AT PRESENT. CALL LIGHT WITHIN REACH.
--- NOTE | 2017-07-30 07:00 | NUR ---
DR CLARKE AT BEDSIDE. DRESSING REMOVED FROM RIGHT SIDE ABDOMEN. HEMATOMA NOTED WITH BRUISING AND STERI-STRIPS. NO DRAINAGE NOTED. TENDERNESS NOTED WITH PALPATION. DR CLARKE APPLIED NEOSPORIN, ADAPTIC, 4X4 AND TRANSPARENT DRESSING. PATIENT TOLERATED WITHOUT PROBLEMS.
[2017-07-30] MEDS ORDERED: TRAM50TA PO (08:24)
[2017-07-30] MEDS ORDERED: ONDA4TAB12 PO (08:24)
--- NOTE | 2017-07-30 08:28 | PRM.DC ---
Discharge Summary Date of Discharge: Jul 30, 2017 Reason for Visit: Gastritis, abdominal pain Patient History: Diabetes mellitus 33 FATHER Hypertension 33 FATHER No known health problems 32 MOTHER G8 BROTHER G8 SISTER G8 SISTER 19 CHILD 19 CHILD History Present Illness: (1) Abdominal pain Status: Resolved ICD Code: R10.9 - Unspecified abdominal pain SNOMED: 09496436 (2) Kristin infection SEVERITY: MILD PERSISTENT Status: Chronic ICD Code: B37.9 - Candidiasis, unspecified SNOMED: 95198389 Assessment & Plan: Continue Diflucan therapy, topical Nystatin as needed (3) Gastritis SEVERITY: MODERATE PERSISTENT Status: Acute ICD Code: K29.70 - Gastritis, unspecified, without bleeding SNOMED: 1185634 Assessment & Plan: PPI BID General: Alert, Oriented X3, Cooperative, No acute distress HEENT: PERRLA, EOMI Neck: Supple, No JVD Lungs: Clear to auscultation, Normal air movement Heart: Regular rate, Normal S1, Normal S2 Abdomen: Normal bowel sounds, Soft, No tenderness Extremities: No clubbing, No cyanosis, No edema Skin: No breakdown Neuro: Normal speech, Strength at 5/5 X4 ext, Cranial nerves 3-12 NL Psych/Mental Status: Mood NL Results(Labs/Rad) Laboratory Tests Test 07/28/17 23:31 White Blood Count 9.1 10^3/uL Red Blood Count 4.16 10^6/uL Hemoglobin 12.0 g/dL Hematocrit 37.1 % Mean Corpuscular Volume 89.2 fL Mean Corpuscular Hemoglobin 28.8 pg Mean Corpuscular Hemoglobin Concent 32.3 g/dL Red Cell Distribution Width 12.5 % Platelet Count 318 10^3/uL Mean Platelet Volume 10.1 fL Neutrophils (%) (Auto) 53.5 % Lymphocytes (%) (Auto) 35.9 % Monocytes (%) (Auto) 8.0 % Neutrophils # (Auto) 4.9 10^3/uL Lymphocytes # (Auto) 3.3 10^3/uL Monocytes # (Auto) 0.7 10^3/uL Absolute Immature Granulocyte (auto 0.02 10^3 u/L Eosinophils % 2.1 % Basophils % 0.3 % Basophils # 0.0 10^3/uL Eosinophil Count 0.2 10^3/uL Prothrombin Time 9.8 SEC Prothrombin Time INR (Non-Therap) 1.0 Activated Partial Thromboplast Time 25.0 SEC Sodium Level 138 mmol/L Potassium Level 3.5 mmol/L Chloride Level 102.0 mmol/L Carbon Dioxide Level 26.7 mmol/L Anion Gap 12.8 Blood Urea Nitrogen 10 mg/dL Creatinine 0.83 mg/dL Estimated GFR () 88.8 BUN/Creatinine Ratio 12.0 Glucose Level 95 mg/dL Calcium Level 8.5 mg/dL Magnesium Level 1.8 mg/dL Total Bilirubin 0.2 mg/dL Aspartate Amino Transf (AST/SGOT) 16 U/L Alanine Aminotransferase (ALT/SGPT) 24 U/L Alkaline Phosphatase 96 U/L Total Protein 7.1 g/dL Albumin 3.8 g/dL Globulin 3.3 Percent Immature Gran (Cell Imm) 0.20 % Scheduled Biotin (Biotin), 2,500 MCG PO DAILY, (Reported) Dicyclomine Hcl (Bentyl), 1 CAP PO DAILY, (Reported) Fluconazole (Diflucan), 150 MG PO BID, (Reported) Multivitamin With Minerals (Hair, Skin & Nails), 2 EACH PO DAILY, (Reported) Ondansetron Hcl (Ondansetron Hcl), 4 MG PO Q4HR Pantoprazole Sodium (Protonix), 40 MG PO DAILY, (Reported) Simvastatin (Simvastatin), 1 TAB PO HS, (Reported) Scheduled PRN Butalbit/Acetamin/Caff/Codeine (Fioricet-Cod [id number] Cap), 1 EACH PO TID PRN for MIGRAINES, (Reported) Tramadol Hcl (Tramadol Hcl), 50 MG PO Q4HR PRN for PAIN Sepsis Evaluation @ Discharge Course Blood Pressure Systolic: 125 Blood Pressure Diastolic: 86 Blood Pressure Mean: 99 Notes see dictated report Plan Discharge Date: Jul 30, 2017 Dicharge DX: 1. Gastritis, 2. Kristin infection abdominal, 3. Abdominal pain Discharge Disposition: Stable Plan Medications per discharge list Diet and activity as tolerated Follow up with PCP 1-2 weeks No lifting anything over 20 pounds for 2-3 weeks Time spent 25 minutes Problem Qualifiers (1) Abdominal pain: Abdominal location: generalized Qualified Codes: R10.84 - Generalized abdominal pain (2) Gastritis: Gastritis type: unspecified gastritis Chronicity: acute Gastritis bleeding: without bleeding Qualified Codes: K29.00 - Acute gastritis without bleeding OMID VEGA MD Jul 30, 2017 08:28
--- NOTE | 2017-07-30 08:30 | NUR ---
PATIENT SITTING UP IN BED. DRESSED IN OWN CLOTHES, MAKEUP ON, INDEPENDENT IN ROOM. DENIES COMPLAINTS.
[2017-07-30 09:00] VITALS: BP 127/79
[2017-07-30] MEDS ORDERED: LOVENOX SQ SCH (09:00)
[2017-07-30] MEDS: BENTYL PO SCH (09:09)
[2017-07-30] MEDS: PROTONIX IV IV SCH (09:09)
--- NOTE | 2017-07-30 09:15 | NUR ---
DRESSING REMOVED FROM RIGHT LOWER ABDOMEN. NO DRESSING PRESENT ON LEFT LOWER ABDOMEN. STERI STRIPS INTACT TO BILATERAL INCISIONS. BRUISING SURROUNDING STERI STRIPS WITH SWELLING PRESENT. SITE VERY TENDER. LEFT INCISION WITH STERI STRIPS INTACT. NEGATIVE DRAINAGE. PATIENT DENIES PAIN TO LEFT SIDE. DISCHARGE PICTURES OBTAINED. BILATERAL SITES CLEANSED WITH WOUND CLEANSER. PATTED DRY WITH 4X4 GAUZE. ADAPTIC WITH NEOSPORIN APPLIED TO RIGHT GROIN, COVERED WITH 4X4 GAUZE, COVERED WITH TRANSPARENT DRESSING. PATIENT TOLERATED WITHOUT PROBLEMS. LEFT INCISION STERI STRIPS LEFT OPEN TO AIR. INSTRUCTED PATIENT TO KEEP WOUNDS CLEAN AND DRY. INSTRUCTED TO REPORT S/S CHILLS, FEVER, INCREASED PAIN, REDNESS, FOUL DRAINAGE, WARMTH, INCREASED SWELLING. INSTRUCTED TO REPORT S/S DVT OR PE: CHEST PAIN, SOB, SWELLING CALF OR LEG, PALPITATIONS, ANXIETY. INSTRUCTED TO AVOID LIFTING OVER 20 LBS. ENCOURAGED TO AMBULATE DAILY AND INCREASE ACTIVITY. INSTRUCTED RE: ADEQUATE NUTRITION FOR HEALING. PATIENT VERBALIZES UNDERSTANDING.
[2017-07-30] MEDS ORDERED: PROTONIX PO ONE (09:16)
[2017-07-30 09:40] VITALS: BP 127/79
--- NOTE | 2017-08-03 11:32 | DSH ---
DATE OF DISCHARGE: 07/30/2017 DISPOSITION: Routine discharge home. PRINCIPAL DIAGNOSES AT DISCHARGE: Includes moderate to severe gastritis, failing outpatient therapy with proton pump inhibitors b.i.d. OTHER DIAGNOSES: Includes persistent Kristin or yeast infections of the skin, failing outpatient therapy with Diflucan orally. BRIEF SUMMARY: The patient was initially admitted on 07/28/2017 from home with significant abdominal pain with minimal oral intake. She had significant abdominal pain each time she tried to eat. She is reluctant to take opiates, has a high pain tolerance. She was given V hydromorphone and did not tolerate it well because she stated it made her feel worse. The symptoms progressed to the point where she was having difficulty eating daily. She was admitted and given IV Protonix q.12h. She was on oral Protonix at home twice a day. General Surgery was consulted. She had EGD, which showed moderate gastritis. She was continued on IV proton pump inhibitor therapy. Diet was advanced after surgical procedure. She had persistent yeast infections of the skin. She was on Diflucan 150 mg daily for suppression therapy, which has failed to suppress her infections, particularly in some areas that had some redundant skin with difficult to eradicate the yeast infection. She had small surgical procedures on each side to try to remove some of the skin to help with wound healing and control of candidal yeast infections. She was started on IV Diflucan while in the hospital. She developed a hematoma in the right lower quadrant, which was very painful. She did require IV opiates. On the day of discharge, she was tolerating diet a little bit better, but still somewhat limited. Plan was to continue proton pump inhibitor b.i.d. therapy at home with Carafate in between for abdominal discomfort. She will follow up with General Surgery for pathology results for biopsies taken on EGD. DISCHARGE ACTIVITY: As tolerated with lifting limitations per General Surgery. DISCHARGE FOLLOWUP: With General Surgery in 1 week and primary care physician in 1-2 weeks. DISCHARGE DIET: Will be as tolerated. Discharge plans were discussed with the patient. She is her own decision maker. She does understand and concur with plans. Time spent on discharge is 25 minutes. Bismark Ronquillo MD DR: MACKENZIE/kashif JOB# [id number] MTDD
--- NOTE | 2017-08-04 07:44 | PNH ---
DATE: 07/29/2017 SUBJECTIVE: She still has significant abdominal pain when she eats. She is only able to tolerate small amounts. She is still somewhat better with IV Protonix. She also has some significant right lower quadrant abdominal pain at the surgical site with significant bruising. She did develop a hematoma. The pain was severe enough to require IV opiates. She is ambulating. OBJECTIVE: VITAL SIGNS: T-max last 24 hours is 97.8, pulse 66, respiratory rate is 18, blood pressure 135/82, O2 saturation 99% on room air. GENERAL: She is alert, in no acute distress at time of exam. HEENT: Pupils equal, round, reactive to light. Sclerae are anicteric. Oropharynx is clear. Mucous membranes are moist. NECK: Supple, no lymphadenopathy. CARDIOVASCULAR: At time of exam was regular rate and rhythm. LUNGS: Clear bilaterally. ABDOMEN: Soft. Bowel sounds are present. Tender to palpation in right lower quadrant and she has a right lower quadrant hematoma with significant bruising. EXTREMITIES: No cyanosis, clubbing, edema. NEUROLOGIC: Grossly nonfocal. ASSESSMENT AND PLAN: The patient is a 47-year-old woman here with [id number] gastritis with failed outpatient therapy with persistent candidal infections of the skin that has failed outpatient therapy with Diflucan. 1. Continue IV Protonix. 2. Diet as tolerated. 3. Appropriate p.r.n. pain and nausea medications. 4. Encourage ambulation. 5. We will continue IV Diflucan and wound care. Time spent on 07/29/2017 is 25 minutes. Bismark Ronquillo MD DR: MACKENZIE/kashif JOB# [id number]
== END 2017-07-30 11:37 | disposition home or self-care (01) | DRG 357 ==
LOC: MS 23:06
PROVIDERS: ADMIT Internal Medicine; ATTEND Internal Medicine
PROC: 0JB80ZZ Excision of Abdomen Subcutaneous Tissue and Fascia, Open Approach (ICD-10-PCS; 2017-07-29)
PROC: 0JB80ZZ Excision of Abdomen Subcutaneous Tissue and Fascia, Open Approach (ICD-10-PCS; 2017-07-29)
PROC: 0DB68ZX Excision of Stomach, Via Natural or Artificial Opening Endoscopic, Diagnostic (ICD-10-PCS; principal; 2017-07-29 08:47)
PROC: 0DB78ZX Excision of Stomach, Pylorus, Via Natural or Artificial Opening Endoscopic, Diagnostic (ICD-10-PCS; 2017-07-29 08:47)
DX: K29.00 Acute gastritis without bleeding (principal); D84.9 Immunodeficiency, unspecified; R13.10 Dysphagia, unspecified; B37.2 Candidiasis of skin and nail; E78.5 Hyperlipidemia, unspecified; M79.81 Nontraumatic hematoma of soft tissue; K21.9 Gastro-esophageal reflux disease without esophagitis; L98.7 Excessive and redundant skin and subcutaneous tissue; Z85.3 Personal history of malignant neoplasm of breast; Z90.49 Acquired absence of other specified parts of digestive tract; Z90.710 Acquired absence of both cervix and uterus; Z98.82 Breast implant status; Z83.3 Family history of diabetes mellitus; Z82.49 Family history of ischemic heart disease and other diseases of the circulatory system
CPT/HCPCS: 15839; 36415; 43239; 80053; 83735; 85025; 85610; 85730; 88305; 93005; C9113; J0690; J1170; J1650; J2250; J2405; J3010; J3490; J7030; J7050; J7120; A9270; J1450

== ENCOUNTER → 2017-09-03 | Outpatient (CLI) | payer BC, OTHER ==
[~2017-09-03] MED LIST changes: +ONDA4TAB12 PO
[2017-09-03 11:02] LABS: HEMOGLOBIN 12.8 g/dL (12.0-15.0); MEAN CELL HGB 29.4 pg (26-34); MEAN CELL HGB CONCENTRATION 32.7 g/dL (33-37); MEAN CORP VOLUME 90.1 fL (78-100); MEAN PLATELET VOLUME 9.7 fL (7.8-11.0); RED CELL DISTRIBUTION WIDTH 12.8 % (11.5-14.5); WHITE BLOOD CELL 8.4 10^3/uL (4.5-11.0)
[2017-09-03 11:44] LABS: CARBON DIOXIDE 28.8 mmol/L (20.0-32)
--- NOTE | 2017-09-03 12:52 | DIREP ---
PROCEDURE:US PELVIS COMPLETE COMPARISON:None. INDICATIONS:PELVIC PAIN TECHNIQUE:Pelvic ultrasound using transabdominal technique. Endovaginal images were also obtained for better assessment of the uterus and adnexa. FINDINGS: UTERUS:Surgically absent. RIGHT OVARY:Small ill-defined structure with adjacent fluid collection in expected right region of the adnexa that measures 1.5 x 1.4 x 1.0 cm. This could represent a small right ovary with a small follicle versus paraovarian tissue. LEFT OVARY:Normal appearance. 1.8 x 1.8 x 1.0 cm. CUL-DE-SAC:Normal. OTHER:Negative. CONCLUSION:Hysterectomy. What is identified by the technologist as the right ovary appears small and may represent a fluid collection or remnant ovarian tissue. Left ovary is normal. Recommend clinical correlation correlate with patient's surgical history. Dictated by: DEJAA Physician on 09/03/2017 at 11:23 AM ely
== END | disposition home or self-care (01) ==
LOC: RAD 09:40
PROVIDERS: ATTEND Nurse Practitioner Family
DX: R10.2 Pelvic and perineal pain (principal); Z90.710 Acquired absence of both cervix and uterus; Z79.899 Other long term (current) drug therapy
CPT/HCPCS: 36415; 76830; 76856; 80048; 82306; 82607; 84403; 85027

== ENCOUNTER → 2018-01-09 | Outpatient (CLI) | payer BC ==
[2018-01-09 21:00] LABS: HEMOGLOBIN 12.7 g/dL (12.0-15.0); MEAN CELL HGB 29.5 pg (26-34); MEAN CELL HGB CONCENTRATION 32.6 g/dL (33-37); MEAN CORP VOLUME 90.5 fL (78-100); MEAN PLATELET VOLUME 9.8 fL (7.8-11.0); RED CELL DISTRIBUTION WIDTH 12.6 % (11.5-14.5); WHITE BLOOD CELL 7.1 10^3/uL (4.5-11.0)
[2018-01-11 08:22] LABS: FOLLICLE STIMULATING HORMONE 43.5 mIU/mL (.)
== END | disposition home or self-care (01) ==
LOC: LAB 20:38
PROVIDERS: ATTEND Internal Medicine
DX: R53.1 Weakness (principal); E78.5 Hyperlipidemia, unspecified; Z79.899 Other long term (current) drug therapy
CPT/HCPCS: 36415; 82306; 82607; 83001; 84403; 85027